=== PATIENT | male | born 1965 | race Two or more races ===

== ENCOUNTER 2023-08-28 19:35 | Inpatient (IN) | payer MEDICAID ==
[~2023-08-28] VITALS: Ht 188 cm; Wt 121.6 kg
[2023-08-28 20:00] VITALS: BP 155/78; PULSE 95; RESP 20; TEMP 97.5
[2023-08-28 21:33] VITALS: BP 155/78; PULSE 95; RESP 20; TEMP 97.5
[2023-08-28] MEDS ORDERED: SENNOSIDES/DOCUSATE SOD 8.6/50MG TABLET PO PRN (21:45)
[2023-08-28] MEDS ORDERED: DEXTROSE 50% WATER 50ML SYRINGE IV PRN (21:45)
[2023-08-28] MEDS ORDERED: MAGNESIUM HYDROXIDE 400MG/5ML 30ML UDC PO PRN (21:45)
[2023-08-28] MEDS ORDERED: BISACODYL 10MG SUPP PR PRN (21:45)
[2023-08-28] MEDS ORDERED: ONDANSETRON 4MG ODT PO PRN (21:45)
[2023-08-28] MEDS ORDERED: ACETAMINOPHEN 325MG TABLET PO PRN (22:00)
[2023-08-29] MEDS: INSULIN LISPRO 100 UNITS/ML SUBCUT SCH ×4 (06:56→20:54)
[2023-08-29] MEDS: BLOOD SUGAR DIAGNOSTIC STRIP TEST SCH ×4 (06:56→20:54)
[2023-08-29 07:47] LABS: BASOPHILS % 0.8 % (0.0-2.0); DIFFERENTIAL COMMENT 0; EOSINOPHILS % 4.1 % (0.0-5.0); HEMATOCRIT. 36.4 % (42.0-52.0); HEMOGLOBIN. 12.6 g/dL (14.0-18.0); LYMPHOCYTES % 15.8 % (20.0-50.0); MEAN CORPUSCULAR HEMOGLOBIN 34.9 pg (28.0-32.0); MEAN CORPUSCULAR HGB CONC 34.5 g/dL (31.0-37.0); MEAN CORPUSCULAR VOLUME 101.1 fL (80.0-94.0); MONOCYTES % 12.1 % (2.0-8.0); NEUTROPHILS % 67.2 % (40.0-76.0); PLATELET 130 x1000/uL (130-400); RED CELL DISTRIBUTION WIDTH 13.6 % (11.6-14.6); WHITE BLOOD COUNT 8.3 x1000/uL (4.5-11.0)
[2023-08-29 08:00] VITALS: BP 125/69; PULSE 94; RESP 18; TEMP 97.1
[2023-08-29 08:18] LABS: ALANINE AMINOTRANSFERASE 48 IU/L (10-49); ALBUMIN 3.5 g/dL (3.2-4.8); ASPARTATE AMINOTRANSFERASE 47 IU/L (<34); BILIRUBIN TOTAL 1.6 mg/dL (0.1-1.0); CALCIUM 8.7 mg/dL (8.7-10.4); CARBON DIOXIDE 25 mEq/L (21-32); CHLORIDE 103 mEq/L (98-107); CREATININE 0.5 mg/dL (0.6-1.3); GLUCOSE 86 mg/dL (70-105); POTASSIUM 3.8 mEq/L (3.5-5.1); PROTEIN TOTAL 5.7 g/dL (6.0-8.3); SODIUM 137 mEq/L (136-145); UREA NITROGEN BLOOD 15 mg/dL (9-23)
[2023-08-29] MEDS: ENOXAPARIN 30MG/0.3ML SYR SUBCUT SCH ×2 (09:00→20:45)
[2023-08-29] MEDS: METHOCARBAMOL 500MG TABLET PO SCH ×4 (09:06→20:45)
[2023-08-29] MEDS: OXYCODONE HCL 5MG TABLET PO PRN (09:07)
[2023-08-29] MEDS ORDERED: NALOXONE HCL 0.4MG/ML VIAL IV PRN (14:15)
[2023-08-29 19:21] LABS: VITAMIN B12 SERUM 191 pg/mL (211-911)
[2023-08-29 19:22] LABS: FERRITIN 226 ng/mL (22-322)
[2023-08-29 20:40] VITALS: BP 126/69; PULSE 92; RESP 18; TEMP 98.1
[2023-08-30] MEDS: BLOOD SUGAR DIAGNOSTIC STRIP TEST SCH ×3 (06:01→21:00)
[2023-08-30] MEDS: INSULIN LISPRO 100 UNITS/ML SUBCUT SCH ×2 (06:38→21:00)
[2023-08-30 08:00] VITALS: BP 142/82; PULSE 101; RESP 20; TEMP 96.5
[2023-08-30] MEDS: METHOCARBAMOL 500MG TABLET PO SCH ×4 (09:41→21:20)
[2023-08-30] MEDS: ENOXAPARIN 30MG/0.3ML SYR SUBCUT SCH ×2 (09:42→21:20)
[2023-08-30] MEDS ORDERED: LACTULOSE 20G/30ML UDC PO PRN (11:00)
[2023-08-30 20:00] VITALS: BP 128/66; PULSE 78; RESP 20; TEMP 97.9
[2023-08-31] MEDS: BLOOD SUGAR DIAGNOSTIC STRIP TEST SCH ×4 (06:11→21:16)
[2023-08-31 06:45] LABS: HEMATOCRIT 39.1 % (42.0-52.0); HEMOGLOBIN 13.6 g/dL (14.0-18.0); MEAN CORPUSCULAR HEMOGLOBIN 35.8 pg (28.0-32.0); MEAN CORPUSCULAR HGB CONC 34.8 g/dL (31.0-37.0); MEAN CORPUSCULAR VOLUME 102.8 fL (80.0-94.0); PLATELET 206 x1000/uL (130-400); RED CELL DISTRIBUTION WIDTH 13.9 % (11.6-14.6); WHITE BLOOD COUNT 10.2 x1000/uL (4.5-11.0)
[2023-08-31 07:15] LABS: CALCIUM 9.2 mg/dL (8.7-10.4); CARBON DIOXIDE 25 mEq/L (21-32); CHLORIDE 105 mEq/L (98-107); CREATININE 0.6 mg/dL (0.6-1.3); GLUCOSE 99 mg/dL (70-105); POTASSIUM 4.6 mEq/L (3.5-5.1); SODIUM 138 mEq/L (136-145); UREA NITROGEN BLOOD 12 mg/dL (9-23)
[2023-08-31 07:53] VITALS: BP 155/82; PULSE 90; RESP 22; TEMP 97.8
[2023-08-31] MEDS: ENOXAPARIN 30MG/0.3ML SYR SUBCUT SCH ×2 (08:18→21:05)
[2023-08-31] MEDS: METHOCARBAMOL 500MG TABLET PO SCH ×4 (08:19→21:04)
[2023-08-31] MEDS: INSULIN LISPRO 100 UNITS/ML SUBCUT SCH ×4 (09:00→21:00)
[2023-08-31] MEDS ORDERED: ACETAMINOPHEN 500MG TABLET PO PRN (14:36)
[2023-08-31] MEDS ORDERED: INFLUENZA VACCINE 05/PF 0.5 ML SYRINGE IM ONE (15:00)
[2023-08-31 20:00] VITALS: BP 138/63; PULSE 84; RESP 20; TEMP 97.7
[2023-08-31] MEDS: OXYCODONE HCL 5MG TABLET PO PRN (20:45)
[2023-09-01] MEDS: BLOOD SUGAR DIAGNOSTIC STRIP TEST SCH ×3 (06:33→21:00)
[2023-09-01 08:00] VITALS: BP 130/80; PULSE 77; RESP 18; TEMP 96.8
[2023-09-01] MEDS: METHOCARBAMOL 500MG TABLET PO SCH ×4 (08:53→21:03)
[2023-09-01] MEDS: INSULIN LISPRO 100 UNITS/ML SUBCUT SCH ×4 (08:53→21:00)
[2023-09-01] MEDS: ENOXAPARIN 30MG/0.3ML SYR SUBCUT SCH ×2 (08:53→21:04)
[2023-09-01 20:00] VITALS: BP 115/68; PULSE 81; RESP 16; TEMP 97.1
[2023-09-02] MEDS: BLOOD SUGAR DIAGNOSTIC STRIP TEST SCH ×4 (06:10→21:59)
[2023-09-02 08:00] VITALS: BP 147/74; PULSE 76; RESP 18; TEMP 97.1
[2023-09-02] MEDS: INSULIN LISPRO 100 UNITS/ML SUBCUT SCH ×4 (08:50→21:00)
[2023-09-02] MEDS: METHOCARBAMOL 500MG TABLET PO SCH ×4 (08:51→21:55)
[2023-09-02] MEDS: ENOXAPARIN 30MG/0.3ML SYR SUBCUT SCH ×2 (08:51→21:55)
[2023-09-02 20:00] VITALS: BP 133/70; PULSE 81; RESP 18; TEMP 97.3
[2023-09-03] MEDS: BLOOD SUGAR DIAGNOSTIC STRIP TEST SCH ×4 (05:42→21:00)
[2023-09-03 08:00] VITALS: BP 126/63; PULSE 79; RESP 18; TEMP 96.6
[2023-09-03] MEDS: METHOCARBAMOL 500MG TABLET PO SCH ×4 (08:57→21:19)
[2023-09-03] MEDS: ENOXAPARIN 30MG/0.3ML SYR SUBCUT SCH ×2 (08:58→21:21)
[2023-09-03] MEDS: INSULIN LISPRO 100 UNITS/ML SUBCUT SCH ×4 (09:00→21:16)
[2023-09-03 20:00] VITALS: BP 101/60; PULSE 95; RESP 18; TEMP 97.9
[2023-09-04] MEDS: BLOOD SUGAR DIAGNOSTIC STRIP TEST SCH ×4 (06:30→20:49)
[2023-09-04] MEDS: INSULIN LISPRO 100 UNITS/ML SUBCUT SCH ×4 (06:58→20:49)
[2023-09-04 08:00] VITALS: BP 125/71; PULSE 74; RESP 20; TEMP 96.8
[2023-09-04] MEDS: ENOXAPARIN 30MG/0.3ML SYR SUBCUT SCH ×2 (08:25→20:23)
[2023-09-04] MEDS: METHOCARBAMOL 500MG TABLET PO SCH ×4 (08:25→20:23)
[2023-09-04 20:00] VITALS: BP 110/69; PULSE 78; RESP 18; TEMP 97.6
[2023-09-05] MEDS: BLOOD SUGAR DIAGNOSTIC STRIP TEST SCH (06:27)
[2023-09-05] MEDS: INSULIN LISPRO 100 UNITS/ML SUBCUT SCH (07:34)
[2023-09-05 08:00] VITALS: BP 113/67; PULSE 68; RESP 18; TEMP 96.7
[2023-09-05] MEDS: METHOCARBAMOL 500MG TABLET PO SCH (08:07)
[2023-09-05] MEDS: ENOXAPARIN 30MG/0.3ML SYR SUBCUT SCH (08:08)
[2023-09-05] MEDS ORDERED: METH-773 PO (09:42)
[2023-09-05 10:07] VITALS: BP 113/67; PULSE 68; TEMP 96.7; O2SAT 95
== END 2023-09-05 10:50 | disposition home health service (06) | DRG 930 ==
PROVIDERS: ADMIT Psychiatry & Neurology Neurology; ATTEND Hospitalist
DX: S32.492A Other specified fracture of left acetabulum, initial encounter for closed fracture (principal); S22.41XA Multiple fractures of ribs, right side, initial encounter for closed fracture; S32.19XA Other fracture of sacrum, initial encounter for closed fracture; S32.592A Other specified fracture of left pubis, initial encounter for closed fracture; R16.0 Hepatomegaly, not elsewhere classified; M47.814 Spondylosis without myelopathy or radiculopathy, thoracic region; D53.9 Nutritional anemia, unspecified; N40.0 Benign prostatic hyperplasia without lower urinary tract symptoms; E66.01 Morbid (severe) obesity due to excess calories; H50.9 Unspecified strabismus; K80.20 Calculus of gallbladder without cholecystitis without obstruction; K57.90 Diverticulosis of intestine, part unspecified, without perforation or abscess without bleeding; I10 Essential (primary) hypertension; F17.210 Nicotine dependence, cigarettes, uncomplicated; K59.00 Constipation, unspecified; Z60.2 Problems related to living alone; R73.9 Hyperglycemia, unspecified; R94.4 Abnormal results of kidney function studies; R53.81 Other malaise; V45.5XXA Car driver injured in collision with railway train or railway vehicle in traffic accident, initial encounter; Z68.34 Body mass index [BMI] 34.0-34.9, adult; Y93.89 Activity, other specified; Y92.488 Other paved roadways as the place of occurrence of the external cause; Y99.8 Other external cause status; Z71.89 Other specified counseling; Z71.6 Tobacco abuse counseling
CPT/HCPCS: 36415; 80048; 80053; 82607; 82728; 82746; 82962; 83036; 85025; 85027; 90686; 93970; 97110; 97116; 97150; 97162; 97166; 97530; 97535; 97542; J1650; J1815